=== PATIENT | male | born 1995 | race Asian ===

== ENCOUNTER 2017-06-09 21:52 | Emergency (ER) | payer BC ==
[~2017-06-09] VITALS: Ht 170.2 cm; Wt 77.1 kg
[2017-06-09 22:00] VITALS: BP_SYST 124
[2017-06-09] MEDS ORDERED: LIDOCAINE 1% 10 MG/ML, 20 ML MDV IJ ONE (22:30)
[2017-06-09] MEDS ORDERED: BACITRACIN 1 GM OINT TP ONE (22:45)
[2017-06-09 22:58] VITALS: BP_SYST 121
== END 2017-06-09 22:58 | disposition home or self-care (01) ==
LOC: SED 21:52
DX: S01.111A Laceration without foreign body of right eyelid and periocular area, initial encounter (principal); W19.XXXA Unspecified fall, initial encounter; Y93.89 Activity, other specified; Y92.89 Other specified places as the place of occurrence of the external cause; Y99.8 Other external cause status
CPT/HCPCS: 12011; 99283; J2001